=== PATIENT | female | born 1995 | race Caucasian/White ===

== ENCOUNTER 2017-09-18 23:10 | Emergency (ER) | payer MEDICAID ==
[~2017-09-18] VITALS: Ht 152.4 cm; Wt 64.9 kg
--- NOTE | 2017-09-18 23:11 | NUR ---
22 Y/O F BIB SELF W/C/O FALLING ON SKATEBOARD 2 DAYS AGO. PT STATES SHE FELL ON HER COCCYX. NO CUTS OR BRUISING NOTED. PT STATES SHE HAS 8/10 PAIN THAT IS SHARP AND DOES NOT RADIATE ANYWHERE ELSE. NO S/S OF DISTRESS NOTED. NO PMH NO ALLERGIES
[2017-09-18 23:16] VITALS: BP 125/79
--- NOTE | 2017-09-18 23:19 | NUR ---
Patient ambulated to bed 11. RN evaluating patient at bedside.
[2017-09-18] MEDS ORDERED: CYCLOBENZAPRINE 10 MG TAB PO ONE (23:30)
[2017-09-18] MEDS ORDERED: KETOROLAC 30 MG/ML VIAL IM ONE (23:30)
[2017-09-18] MEDS ORDERED: IBUPROFEN 800 MG TAB PO ONE (23:45)
--- NOTE | 2017-09-19 00:12 | NUR ---
pt returned from xray via wheelchair.
[2017-09-19 00:21] VITALS: BP 128/69
--- NOTE | 2017-09-19 00:22 | NUR ---
Patient discharged with v/s stable. Written and verbal after care instructions given and explained. Patient alert, oriented and verbalized understanding of instructions. Ambulatory with steady gait. All questions addressed prior to discharge. ID band removed. Patient advised to follow up with PMD. Rx of IBUPROFEN 600 MG given. Patient educated on indication of medication including possible reaction and side effects. Opportunity to ask questions provided and answered.
== END 2017-09-19 00:22 | disposition home or self-care (01) ==
LOC: MED 23:10
DX: S39.012A Strain of muscle, fascia and tendon of lower back, initial encounter (principal); V00.131A Fall from skateboard, initial encounter; Y93.51 Activity, roller skating (inline) and skateboarding; Y99.8 Other external cause status; Y92.89 Other specified places as the place of occurrence of the external cause
CPT/HCPCS: 72220; 81025; 99284; J1885; 99283